=== PATIENT | female | born 1965 | race Caucasian/White ===

== ENCOUNTER 2016-12-10 11:12 | Emergency (ER) | payer OTHER ==
[~2016-12-10] VITALS: Ht 182.9 cm; Wt 84.7 kg
[2016-12-10 12:13] LABS: CHLORIDE 108 mEq/L (99-109); POTASSIUM 3.9 mEq/L (3.7-5.4); SODIUM 141 mEq/L (136-147)
[2016-12-10 12:15] LABS: GLUCOSE 109 mg/dL (70-99)
[2016-12-10 12:17] LABS: ANION GAP 12 MEQ/L (2-14)
[2016-12-10 12:19] LABS: GFR ESTIMATE (CALCULATED) > 59 mL/min/
[2016-12-10 12:20] LABS: UREA NITROGEN (BUN) 15 mg/dL (9-23)
[2016-12-10 12:23] LABS: INTER. NORMALIZED RATIO 1.1; PROTHROMBIN TIME 10.7 (9.2-11.2); PTT 22.9 (25-32)
[2016-12-10 12:58] LABS: HDL CHOLESTEROL 63 MG/DL (Desirable>=50); LDL CHOLESTEROL 167 mg/dL (Desirable<100); NON-HDL CHOLESTEROL 185 mg/dL (Desirable<160); SAMPLE HEMOLYSIS CHECK 0; SAMPLE ICTERIC CHECK 0; SAMPLE LIPEMIA CHECK 0; TOTAL CHOLESTEROL 248 mg/dL (Desirable<200); TRIGLYCERIDES 88 MG/DL (Normal: <150)
[2016-12-10 13:16] LABS: Estimated Average Glucose 114 mg/dL (70-123); HEMOGLOBIN A1c (GLYCOHEMOGLOB) 5.6 % HGB (Below 5.7)
[2016-12-10 13:36] LABS: BASOPHIL COUNT 0.1 K/uL (0-0.1); EOSINOPHIL (%) 0 % (0-5); HEMATOCRIT 40.2 % (36.0-46.0); IMMATURE GRANULOCYTE (%) 0.2 % (0.0-0.7); INSTRUMENT ABS NEUTROPHIL CT 2.9 K/uL; LYMPHOCYTE COUNT 1.5 K/uL (1.0-2.8); MCH 30.4 PG (29.0-34.0); MCHC 34.1 G/DL (30.0-36.0); MCV 89.3 FL (83-99); MEAN PLAT.VOLUME 9.6 uM^3 (9.5-12.4); MONOCYTE (%) 7.4 % (3-12); MONOCYTE COUNT 0.4 K/uL (0-0.8); NEUTROPHIL (%) 60.8 % (45-76); NEUTROPHIL COUNT 2.9 K/uL (1.8-6.4); PLATELET COUNT 334 K/uL (156-360); RBC DIS.WIDTH-SD 45.7 % (39-53); WHITE BLOOD COUNT 4.8 K/uL (4.1-10.2)
[2016-12-10] MEDS ORDERED: SYNTHROID112 MCG PO (14:12)
[2016-12-10] MEDS ORDERED: DIAZEPAM10 MG PO (14:13)
[2016-12-10] MEDS ORDERED: ONDANSETRON ODT8 MG PO (14:13)
[2016-12-10] MEDS ORDERED: HYDROMORPHONE HC4 MG PO (14:15)
[2016-12-10] MEDS ORDERED: BUTALB-ACETAMI1 EAC2 PO (14:17)
[2016-12-10 20:22] VITALS: BP 110/79
== END 2016-12-10 20:23 | disposition designated cancer center or children's hospital, planned readmission (85) ==
LOC: EDBD 11:12 → EME 11:12
PROVIDERS: Emergency Medicine
DX: G90.4 Autonomic dysreflexia (principal); E78.5 Hyperlipidemia, unspecified; R53.1 Weakness; R47.1 Dysarthria and anarthria; Q79.6 Ehlers-Danlos syndromes; Z87.891 Personal history of nicotine dependence
CPT/HCPCS: 70450; 80048; 80061; 83036; 85025; 85025 91; 85610; 85730; 93005; 99281; 99285; J1170; J2060; J7030; J7050